=== PATIENT | female | born 1985 | race African-American/Black ===

== ENCOUNTER 2017-08-15 18:20 | Emergency (ER) | END 2017-08-15 22:13 | disposition left against medical advice (07) ==

== ENCOUNTER 2017-08-16 07:26 | Emergency (ER) | END 2017-08-16 10:38 | disposition home or self-care (01) ==

== ENCOUNTER 2017-09-20 08:00 | Emergency (ER) | END 2017-09-20 11:09 | disposition home or self-care (01) ==

== ENCOUNTER 2017-09-22 22:05 | Emergency (ER) | END 2017-09-23 04:36 | disposition home or self-care (01) ==